=== PATIENT | female | born 1980 ===

== ENCOUNTER 2016-11-19 16:53 | Inpatient (IN) | payer OTHER ==
[2016-11-19 16:53] VITALS: BMI 24.9
--- NOTE | 2016-11-19 18:07 | C.PDOC ---
History Of Present Illness 36 year old female with a history of depression and bipolar disorder, presents to the ED requesting detox from alcohol. Patient states she drinks a gallon of vodka a day and notes her last drink was today. She reports some abdominal discomfort and feeling tremulous. patient has no other complaints at this time. Time Seen by Provider: 11/19/16 17:23 Chief Complaint (Nursing): Medical Clearance History Per: Patient History/Exam Limitations: no limitations Onset/Duration Of Symptoms: Days Current Symptoms Are (Timing): Still Present Severity: Mild Past Medical History Reviewed: Historical Data, Nursing Documentation, Vital Signs Vital Signs: Last Vital Signs Temp 97.6 F 11/19/16 17:29 Pulse 75 11/19/16 17:29 Resp 20 11/19/16 17:29 BP 117/76 11/19/16 17:04 Pulse Ox 98 11/19/16 18:08 - Medical History PMH: Anemia (iron deficient (thought perhaps malabsorptive)), Arthritis, Asthma , Bipolar Disorder, Bronchitis, Depression, Kidney Stones, Migraine (chronic, was not responsive to Fioricet), Chronic Kidney Disease, Schizophrenia, Seizures (followed by neurologist in [facility] for migraines) Surgical History: Cholecystectomy - [facility] Procedures INJECT/INFUSE NEC (03/20/13) PACKED CELL TRANSFUSION (05/30/13) PSYCHIAT DRUG THERAP NEC (07/08/12) RETROGRADE PYELOGRAM (06/27/04) TONSILLECTOMY (03/16/99) URETERAL CATHETERIZATION (06/27/04) Family History: States: Unknown Family Hx - Social History Hx Tobacco Use: Yes Hx Alcohol Use: Yes Hx Substance Use: Yes - Immunization History Hx Tetanus Toxoid Vaccination: Yes Hx Influenza Vaccination: Yes Hx Pneumococcal Vaccination: No Review Of Systems Except As Marked, All Systems Reviewed And Found Negative. Constitutional: Positive for: Other (Detox). Negative for: Fever, Chills Cardiovascular: Negative for: Chest Pain, Palpitations Respiratory: Negative for: Shortness of Breath Gastrointestinal: Positive for: Abdominal Pain Neurological: Positive for: Other (Tremulous) Physical Exam - Physical Exam Appears: Non-toxic, No Acute Distress Skin: Normal Color, Warm, Dry Head: Atraumatic, Normacephalic Eye(s): bilateral: Normal Inspection Oral Mucosa: Moist Chest: Symmetrical, No Deformity Cardiovascular: Rhythm Regular, No Murmur Respiratory: Normal Breath Sounds, No Accessory Muscle Use, No Rales, No Rhonchi , No Wheezing Gastrointestinal/Abdominal: Soft, No Tenderness, No Distention, No Guarding, No Rebound Extremity: Normal ROM, No Deformity, No Other (No tremors noted) Neurological/Psych: Oriented x3, Normal Speech, Normal Cognition ED Course And Treatment - Laboratory Results Result Diagrams: 11/19/16 17:59 11/19/16 17:59 Lab Interpretation: Abnormal (ETOH 338H) Urine POC: Negative O2 Sat by Pulse Oximetry: 98 (Room air) Pulse Ox Interpretation: Normal Progress Note: Blood work and Urinalysis ordered and reviewed. case discussed with the crisis director of career resources who agreed to evaluate the patient. 1830: librium 50 mg PO for anxiety/withdrawal Reevaluation Time: 19:09 Reassessment Condition: Improved Medical Decision Making Medical Decision Making: pre-screened for etoh detox- approved pending sobriety. Disposition - Disposition Disposition Time: 19:00 Condition: GOOD - Clinical Impression Clinical Impression: Alcohol abuse - Scribe Statement The provider has reviewed the documentation as recorded by the Scribe Susie Walker. Provider Attestation: All medical record entries made by the Scribe were at my direction and personally dictated by me. I have reviewed the chart and agree that the record accurately reflects my personal performance of the history, physical exam, medical decision making, and the department course for this patient. I have also personally directed, reviewed, and agree with the discharge instructions and disposition. Physician Patient Turnover Patient Signed Over To: Janice Barraza Handoff Comments: dispo per Crisis
[2016-11-19 18:08] LABS: RBC URINE 2 /hpf (0-3); URINE BACTERIA MANY (<OCC); URINE BILIRUBIN NEGATIVE (NEGATIVE); URINE BLOOD 1+ (NEGATIVE); URINE COLOR Amber (YELLOW); URINE GLUCOSE (UA) NORMAL (Normal); URINE KETONE 1+ mg/dL (NEGATIVE); URINE LEUKOCYTE ESTERASE TRACE Leu/uL (Negative); URINE PROTEIN 2+ mg/dL (NEGATIVE); WBC URINE 12 /hpf (0-5)
[2016-11-19 18:11] LABS: CHLORIDE 103 mmol/L (98-107)
[2016-11-19 18:12] LABS: POTASSIUM 3.3 mmol/L (3.6-5.2); SODIUM 145 mmol/L (132-148)
[2016-11-19 18:14] LABS: ALB/GLOB RATIO 1.4 (1.0-2.1); ALKALINE PHOSPHATASE 261 U/L (38-126); AST/SGOT 326 U/L (14-36); BILIRUBIN,TOTAL 0.7 mg/dL (0.2-1.3); BLOOD UREA NITROGEN 12 mg/dL (7-17); CARBON DIOXIDE 22 mmol/L (22-30); GFR AFRICAN-AMERICAN > 60; GLUCOSE,RANDOM 62 mg/dL (65-105); TOTAL PROTEIN 6.8 g/dL (6.3-8.3)
[2016-11-19 18:15] LABS: ALT/SGPT 89 U/L (9-52); CALCIUM 7.1 mg/dl (8.6-10.4)
[2016-11-19 18:16] LABS: BASO % 0.9 % (0.0-2.0); EOS % 0.1 % (0.0-4.0); LYMPH # 1.4 K/uL (1.0-4.3); MEAN CELL VOLUME 95.4 fL (81.0-99.0); MEAN CORPUSCULAR HEMOGLOBIN 31.6 pg (27.0-31.0); MEAN CORPUSCULAR HGB CONC 33.1 g/dL (33.0-37.0); MEAN PLATELET VOLUME 5.9 fL (7.2-11.7); MONO # 0.2 K/uL (0.0-0.8); MONO % 5.4 % (0.0-10.0); NRBC % 0.1 % (0.0-2.0); RED CELL DISTRIBUTION WIDTH 19.1 % (11.5-14.5); WHITE BLOOD COUNT 3.9 K/uL (4.8-10.8)
[2016-11-19 18:30] LABS: ALCOHOL SERUM 338 mg/dl (0-10)
[2016-11-19] MEDS ORDERED: Potassium Chloride 20 mEq ER Tab PO STA (19:24)
[2016-11-19] MEDS ORDERED: Potassium Chloride 20 mEq ER Tab PO ONE (19:40)
[2016-11-20 09:21] VITALS: RESP 18
[2016-11-20] MEDS: Multiple Vitamins Tab PO SCH (11:03)
[2016-11-20] MEDS ORDERED: Potassium Chloride 20 mEq ER Tab PO ONE (13:00)
[2016-11-20] MEDS: Calcium-Vit D 500 mg-200 Units Tab UD PO SCH ×2 (13:11→17:20)
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
[2016-11-20] MEDS: Bacitracin Ointment 30 GM TUBE TOP SCH (21:57)
[2016-11-21 08:26] LABS: CHLORIDE 97 mmol/L (98-107)
[2016-11-21 08:27] LABS: POTASSIUM 3.9 mmol/L (3.6-5.2); SODIUM 138 mmol/L (132-148)
[2016-11-21 08:29] LABS: AST/SGOT 210 U/L (14-36); BILIRUBIN,TOTAL 0.8 mg/dL (0.2-1.3); CARBON DIOXIDE 31 mmol/L (22-30); GFR AFRICAN-AMERICAN > 60
[2016-11-21 08:30] LABS: ALB/GLOB RATIO 1.4 (1.0-2.1); ALKALINE PHOSPHATASE 209 U/L (38-126); ALT/SGPT 64 U/L (9-52); BLOOD UREA NITROGEN 9 mg/dL (7-17); CALCIUM 8.5 mg/dl (8.6-10.4); GLUCOSE,RANDOM 75 mg/dL (65-105)
[2016-11-21] MEDS: Calcium-Vit D 500 mg-200 Units Tab UD PO SCH ×2 (09:55→17:12)
[2016-11-21] MEDS: Multiple Vitamins Tab PO SCH (09:56)
[2016-11-21] MEDS: Bacitracin Ointment 30 GM TUBE TOP SCH ×2 (10:00→17:12)
--- NOTE | 2016-11-21 15:56 | PCM.PYCHPN ---
Psychiatric Progress Note - Psychiatric Progress Note Patient seen today, length of contact: 20 min Patient Chief Complaint: "I am doing better today" Problems Identified/Issues Discussed: The pt is seen, chart reviewed, case discussed with staff. Pt states that her mood is positive today. She slept well the night before. Pt admits to diarrhea, vomiting and weakness in her legs. Her shakes have improved from yesterday. Pt denies suicidal thoughts or thoughts of hurting other people. Pt denies auditory or visual hallucinations. Her current plan is to go to [facility] after her treatment is done. After care discussed, support and psychoeducation given. DSM 5 Symptoms Update: Alcohol withdrawal Alcohol use disorder-severe Bipolar 2 d/o Cannabis use d/o - moderate Medication Change: Yes (Lorazepam taper) Medical Record Reviewed: Yes Mental Status Examination - Cognitive Function Orientation: Person, Place, Situation, Time Memory: Intact Attention: WNL Concentration: WNL Association: WN Fund of Knowledge: WN - Mood Mood: Depressed, Anxious - Affect Affect: Broad - Speech Speech: Appropriate - Formal Thought Process Formal Thought Process: No Impairment - Suicidal Ideation Suicidal Ideation: No - Homicidal Ideation Homicidal Ideation: No Goal/Treatment Plan - Goal/Treatment Plan Need for Continued Stay: Discharge may exacerbated symptoms Progress Toward Problem(s) and Goals/Treatment Plan: Alcohol: Ativan detox As needed meds Attend groups and activities RI/CBT for abstinence Support and psychoeducation Prisca for s/z d.o Cipro for UTI x7 days Seroquel 100 mg hs for bipolar Type 2 Gabapentin for anxiety, PTSD-like sxs, cannabis withdrawal Patch for nicotine Refer to rehab Consider topamax or naltrexone for cravings (when liver improves) - Smoking Cessation Smoking Cessation Initiated: Yes
[2016-11-22] MEDS: Multiple Vitamins Tab PO SCH (09:52)
[2016-11-22] MEDS: Bacitracin Ointment 30 GM TUBE TOP SCH ×2 (09:52→20:06)
[2016-11-22] MEDS: Calcium-Vit D 500 mg-200 Units Tab UD PO SCH ×2 (09:52→17:10)
--- NOTE | 2016-11-22 13:44 | PCM.PYCHPN ---
Psychiatric Progress Note - Psychiatric Progress Note Patient seen today, length of contact: 17 min Patient Chief Complaint: "I am fine" Problems Identified/Issues Discussed: The pt is seen, chart reviewed, case discussed with staff. After care discussed, support and psychoeducation given. CT used. The pt confirms that she had NOT had any seizures "in years." Also, she is NOT hearing voices, seeing things or paranoid. She is somewhat anxious and withdrawn but overall she has much improved and functioning properly. No acute sxs or risks. Medication Change: Yes (Lorazepam taper) Medical Record Reviewed: Yes Mental Status Examination - Cognitive Function Orientation: Person, Place, Situation, Time Memory: Intact Attention: WNL Concentration: WNL Association: WNL Fund of Knowledge: WNL - Mood Mood: Depressed, Anxious - Affect Affect: Broad - Speech Speech: Appropriate - Formal Thought Process Formal Thought Process: No Impairment - Suicidal Ideation Suicidal Ideation: No - Homicidal Ideation Homicidal Ideation: No Goal/Treatment Plan - Goal/Treatment Plan Need for Continued Stay: Severe functional impairment Progress Toward Problem(s) and Goals/Treatment Plan: Alcohol: Ativan detox As needed meds Attend groups and activities CT/CBT for abstinence Support and psychoeducation Prisca for s/z d.o Cipro for UTI x7 days Seroquel 100 mg hs for bipolar Type 2 Gabapentin for anxiety, PTSD-like sxs, cannabis withdrawal Patch for nicotine Refer to rehab Consider topamax or naltrexone for cravings (when liver improves) Estimated Date of D/C: 11/23/16
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
[2016-11-23 09:10] VITALS: BP 130/73; PULSE 78; TEMP 97.3; O2SAT 97
[2016-11-23] MEDS: Multiple Vitamins Tab PO SCH (09:33)
[2016-11-23] MEDS: Bacitracin Ointment 30 GM TUBE TOP SCH (09:34)
[2016-11-23] MEDS: Calcium-Vit D 500 mg-200 Units Tab UD PO SCH (09:39)
[2016-11-23] MEDS ORDERED: Pneumococcal 23-Valent Vaccine IM ONE (10:00)
== END 2016-11-23 11:15 | disposition home or self-care (01) | DRG 750 ==
LOC: C.ER 16:53 → C.9OBSV 19:25 → OBSVTOIN 11-20 01:16 → C.7D 11-20 01:31
PROVIDERS: ADMIT Psychiatry & Neurology Psychiatry; ATTEND Psychiatry & Neurology Psychiatry
PROC: HZ2ZZZZ Detoxification Services for Substance Abuse Treatment (ICD-10-PCS; principal; 2016-11-20)
PROC: HZ46ZZZ Group Counseling for Substance Abuse Treatment, Psychoeducation (ICD-10-PCS; 2016-11-20)
PROC: HZ59ZZZ Individual Psychotherapy for Substance Abuse Treatment, Supportive (ICD-10-PCS; 2016-11-20)
PROC: GZ3ZZZZ Medication Management (ICD-10-PCS; 2016-11-20)
DX: F10.230 Alcohol dependence with withdrawal, uncomplicated (principal); F31.9 Bipolar disorder, unspecified; F12.10 Cannabis abuse, uncomplicated; N39.0 Urinary tract infection, site not specified; F17.210 Nicotine dependence, cigarettes, uncomplicated; G40.909 Epilepsy, unspecified, not intractable, without status epilepticus; J45.909 Unspecified asthma, uncomplicated; Z90.49 Acquired absence of other specified parts of digestive tract

== ENCOUNTER 2017-06-27 17:15 | Inpatient (IN) | payer MEDICAID ==
[2017-06-27 17:15] VITALS: BMI 26.4
--- NOTE | 2017-06-27 18:14 | C.PDOC ---
History Of Present Illness 37 y/o female, with PMHx of seizures, complaint with meds, presents to ED requesting detox from alcohol. Notes drinking a gallon of vodka a day. Last drink was yesterday. Pt complaints of nausea, weakness, and shaking. No other complaints. Time Seen by Provider: 06/27/17 17:52 Chief Complaint (Nursing): Substance Abuse History Per: Patient History/Exam Limitations: no limitations Onset/Duration Of Symptoms: Gradual Current Symptoms Are (Timing): Still Present Suicide/Self Injury Attempted (Context): None Modifying Factor(s): Alcohol Associated Symptoms: denies: Suicidal Thoughts, Suicidal Plan Involuntary Hold By: None Recent travel outside of the [place]: No Additional History Per: Patient Past Medical History Reviewed: Historical Data, Nursing Documentation, Vital Signs Vital Signs: Last Vital Signs Temp 97.8 F 06/27/17 17:20 Pulse 81 06/27/17 17:20 Resp 20 06/27/17 17:20 BP 113/75 06/27/17 17:20 Pulse Ox 98 06/27/17 18:22 - Medical History PMH: Anemia (iron deficient), Anxiety, Arthritis, Asthma, Bipolar Disorder, Bronchitis, Depression, Kidney Stones, Migraine (chronic, was not responsive to Fioricet), Schizophrenia, Seizures Denies: Diabetes, Hepatitis, HIV, HTN, Chronic Kidney Disease, Sexually Transmitted Disease Surgical History: Cholecystectomy Denies: Pacemaker - [facility] Procedures DETOXIFICATION SERVICES FOR SUBSTANCE ABUSE TREATMENT (11/20/16) GROUP RACE AND SPORTS BOOK WRITER FOR SUBSTANCE ABUSE TREATMENT, PSYCHOEDUCATION (11/20/16) INDIV PSYCHOTHERAPY FOR SUBSTANCE ABUSE TREATMENT, SUPPORT (11/20/16) INJECT/INFUSE NEC (03/20/13) MEDICATION MANAGEMENT (11/20/16) PACKED CELL TRANSFUSION (05/30/13) PSYCHIAT DRUG THERAP NEC (07/08/12) RETROGRADE PYELOGRAM (06/27/04) TONSILLECTOMY (03/16/99) URETERAL CATHETERIZATION (06/27/04) Family History: States: Unknown Family Hx - Social History Hx Tobacco Use: Yes Hx Alcohol Use: Yes (HEAVY ALCOHOL USE, VODKA) Hx Substance Use: Yes (MARIJUANA) - Immunization History Hx Tetanus Toxoid Vaccination: Yes Hx Influenza Vaccination: Yes Hx Pneumococcal Vaccination: No Review Of Systems Except As Marked, All Systems Reviewed And Found Negative. Constitutional: Positive for: Weakness. Negative for: Fever, Chills Cardiovascular: Negative for: Chest Pain, Palpitations Respiratory: Negative for: Cough, Shortness of Breath Gastrointestinal: Positive for: Nausea. Negative for: Vomiting, Abdominal Pain Neurological: Negative for: Headache, Dizziness Psych: Negative for: Suicidal ideation Physical Exam - Physical Exam Appears: Non-toxic, No Acute Distress Skin: Normal Color, Warm, Dry Head: Atraumatic, Normacephalic Eye(s): bilateral: Normal Inspection Oral Mucosa: Moist Neck: Supple Cardiovascular: Rhythm Regular, No Murmur Respiratory: Normal Breath Sounds, No Rales, No Rhonchi, No Wheezing Gastrointestinal/Abdominal: Soft, No Tenderness Extremity: Normal ROM, No Pedal Edema Neurological/Psych: Oriented x3, Normal Speech ED Course And Treatment - Laboratory Results Result Diagrams: 06/27/17 18:16 06/27/17 18:16 O2 Sat by Pulse Oximetry: 98 Medical Decision Making Medical Decision Making: Blood work, UA ordered and reviewed. Pending crisis evaluation. Disposition Counseled Patient/Family Regarding: Studies Performed, Diagnosis - Disposition Disposition: HOSPITALIZED Disposition Time: 18:34 Condition: GUARDED - POA Present On Arrival: None - Clinical Impression Clinical Impression: Alcohol use disorder - Scribe Statement The provider has reviewed the documentation as recorded by the Scribe Ericka Hector All medical record entries made by the Scribe were at my direction and personally dictated by me. I have reviewed the chart and agree that the record accurately reflects my personal performance of the history, physical exam, medical decision making, and the department course for this patient. I have also personally directed, reviewed, and agree with the discharge instructions and disposition. Physician Patient Turnover Patient Signed Over To: Christo Peterson Handoff Comments: Pending labs and crisis evaluation Decision To Admit - . Patient Diagnosis: Alcohol use disorder
[2017-06-27 18:23] LABS: BASO % 0.9 % (0.0-2.0); EOS % 0.3 % (0.0-4.0); HEMATOCRIT 33.2 % (34.0-47.0); LYMPH # 1.4 K/uL (1.0-4.3); LYMPH % 30.2 % (20.0-40.0); MEAN CELL VOLUME 84.3 fL (81.0-99.0); MEAN CORPUSCULAR HEMOGLOBIN 27.6 pg (27.0-31.0); MEAN CORPUSCULAR HGB CONC 32.8 g/dL (33.0-37.0); MEAN PLATELET VOLUME 7.1 fL (7.2-11.7); MONO # 0.3 K/uL (0.0-0.8); MONO % 7.1 % (0.0-10.0); NRBC % 0.1 % (0.0-2.0); RED CELL DISTRIBUTION WIDTH 19.5 % (11.5-14.5); WHITE BLOOD COUNT 4.6 K/uL (4.8-10.8)
[2017-06-27 18:31] LABS: ALB/GLOB RATIO 0.9 (1.0-2.1); ALCOHOL SERUM 89 mg/dl (0-10); ALKALINE PHOSPHATASE 99 U/L (38-126); ALT/SGPT 43 U/L (9-52); AST/SGOT 43 U/L (14-36); BILIRUBIN,TOTAL 0.3 mg/dL (0.2-1.3); BLOOD UREA NITROGEN 11 mg/dL (7-17); CALCIUM 8.2 mg/dl (8.6-10.4); CARBON DIOXIDE 23 mmol/L (22-30); CHLORIDE 106 mmol/L (98-107); GFR AFRICAN-AMERICAN > 60; GLUCOSE,RANDOM 73 mg/dL (65-105); POTASSIUM 3.4 mmol/L (3.6-5.2); SODIUM 140 mmol/L (132-148); TOTAL PROTEIN 7.9 g/dL (6.3-8.3)
[2017-06-27 18:49] LABS: RBC URINE 1 /hpf (0-3); URINE BACTERIA OCC (<OCC); URINE BILIRUBIN NEGATIVE (NEGATIVE); URINE BLOOD NEGATIVE (NEGATIVE); URINE COLOR Yellow (YELLOW); URINE GLUCOSE (UA) NORMAL (Normal); URINE KETONE NEGATIVE (NEGATIVE); URINE LEUKOCYTE ESTERASE TRACE Leu/uL (Negative); URINE PROTEIN NEGATIVE (NEGATIVE); URINE UROBILINOGEN NORMAL mg/dL (0.2-1.0); WBC URINE 12 /hpf (0-5)
[2017-06-27] MEDS ORDERED: Potassium Chloride 10 mEq ER Tab PO STA (19:13)
[2017-06-27] MEDS ORDERED: Potassium Chloride 20 mEq ER Tab PO ONE (19:32)
--- NOTE | 2017-06-27 20:32 | PCM.BM ---
<Simin Lee - Last Filed: 06/27/17 20:31> Treatment Plan Problems - Problems identified on initial assessmt Potential for alcohol withdrawal Date Initiated: 06/27/17 Time Initiated: 20:31 Assessment reference: NA Status: Active Priority: 1 Treatment assets and liabiliti Patient Assests: cooperative, ADL independent, negotiates basic needs, cognitively intact Patient Liabilities: substance abuse - Milieu Protocol Maintain good personal hygiene: daily Encourage regular showers, daily Remind patient to perform daily oral care, daily Assist patient to perform ADL's Maintain personal safety: every shift Educate patient to report safety concerns to staff, every shift Monitor environment for contraband/sharps Medication safety: Monitor for expected outcome, potential side effects: every shift, Assess barriers to learning: every shift, Assess readiness for medication education: every shift <Juan Pinto - Last Filed: 06/28/17 00:30> - Diagnosis (1) Alcohol use disorder Status: Acute Interventions: 06/28/17 00:30 * Assess 7x/week regarding severity of withdrawal * Educate regarding risks, benefits, side effects and alternatives of medications * Use Motivational Interviewing for abstinence * Use CBT for relapse prevention * Medication management for withdrawal symptoms * Encourage medication assisted treatment * <Mery Lindsay - Last Filed: 07/01/17 08:41> Family Contact Family involvement: Noel/SO not involved Family contact: Patient agrees to contact - Goals for Treatment Patient goals for treatment: Complete detox and apply for joint terminal attack controller rehab. Discharge/Continuing Care - Education Needs Education Needs: Patient Medication, Patient Diagnosis/Disease Process, Patient Coping Skills, Patient Anger Management skills, Patient Placement options, Patient Community resources - Discharge Discharge Criteria: No longer exhibiting s/s of withdrawal, Reduction of target symptoms Discharge to:: Substance Abuse Rehab - Treatment Team Participation Patient/Family/SO Statement: 07/01/17 08:41 "I wanna go to [facility] if I [facility]". Discussed with Family/SO: No Was Patient/Family/SO present at Treatment Team Meeting: Yes
[2017-06-27] MEDS ORDERED: Aluminum Hydroxide/Magnesium Hydroxide Susp (30 mL) PO PRN (21:18)
[2017-06-28] MEDS: Multiple Vitamins Tab PO SCH (09:55)
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
[2017-06-28] MEDS: Pantoprazole 40 mg EC Tab PO SCH (13:53)
[2017-06-29 08:29] LABS: ALB/GLOB RATIO 1.2 (1.0-2.1); ALKALINE PHOSPHATASE 83 U/L (38-126); ALT/SGPT 34 U/L (9-52); AST/SGOT 41 U/L (14-36); BILIRUBIN,TOTAL 0.6 mg/dL (0.2-1.3); BLOOD UREA NITROGEN 9 mg/dL (7-17); CARBON DIOXIDE 24 mmol/L (22-30); CHLORIDE 102 mmol/L (98-107); CHOLESTEROL 128 mg/dL (0-199); GFR AFRICAN-AMERICAN > 60; GLUCOSE,RANDOM 99 mg/dL (65-105); MAGNESIUM 1.6 mg/dL (1.6-2.3); POTASSIUM 3.3 mmol/L (3.6-5.2); SODIUM 134 mmol/L (132-148); TOTAL PROTEIN 6.1 g/dL (6.3-8.3)
[2017-06-29] MEDS: Pantoprazole 40 mg EC Tab PO SCH (10:37)
[2017-06-29] MEDS: Multiple Vitamins Tab PO SCH (10:37)
--- NOTE | 2017-06-29 11:50 | RAD ---
Right knee three views History: Fall. Comparison: None available. Findings: No evidence for acute displaced fracture or dislocation. No significant suprapatellar joint effusion. Few horizontally oriented linear areas of increased sclerosis within the posterior proximal tibia may represent some vascular grooves. Impression: Negative acute. If pain persists, consider MRI.
--- NOTE | 2017-06-29 17:36 | PCM.PYCHPN ---
Psychiatric Progress Note - Psychiatric Progress Note Patient seen today, length of contact: 17 minutes Patient Chief Complaint: I have pain in my Right knee Problems Identified/Issues Discussed: The pt is seen, chart reviewed, case discussed with staff. The pt stated that she fell down yesterday last night, but she did not reported the incident to on- call staff last night. Pt stated that she has had Right knee pain and difficulty in walking. She denied any dizziness, headache or head injury. The pt is compliant with medications and reports no side-effects. Symptoms are improving but needs more time to stabilize. After care discussed, support and psychoeducation given. DSM 5 Symptoms Update: Alcohol withdrawal Alcohol use d/o - severe Bipolar II d/o -depressed r/o Borderline personality d/o Medication Change: Yes (librium detox) Medical Record Reviewed: Yes Mental Status Examination - Cognitive Function Orientation: Person, Place, Situation, Time Memory: Intact Attention: WNL Concentration: WNL Association: WNL Fund of Knowledge: WN Decription of patient's judgement and insights: fair/fair Addtional comments: Calm and cooperative, on Right Knee examination there were old scab and one small tiny rectangular shape bruise size is less than 0.5 cm x 1 cm in lenght, there was no head or fore injury observed, on palpation it was no tenderness, no swelling or redness. - Mood Mood: Anxious, Neutral - Affect Affect: Constricted - Speech Speech: Appropriate - Formal Thought Process Formal Thought Process: No Impairment Psychotic Thoughts and Behaviors: denied - Suicidal Ideation Suicidal Ideation: No - Homicidal Ideation Homicidal Ideation: No Goal/Treatment Plan - Goal/Treatment Plan Progress Toward Problem(s) and Goals/Treatment Plan: Librium detox As needed medications Gabapentin for augmentation Will f/u with knee xray results. Attend groups and activities Supportive therapy and psychoeducation [place] for abstinence CBT for relapse prevention Encourage MAT Refer to rehab or IOP Attend self-help groups as well - Smoking Cessation Smoking Cessation Initiated: Yes
[2017-06-30] MEDS: Multiple Vitamins Tab PO SCH (10:24)
[2017-06-30] MEDS: Pantoprazole 40 mg EC Tab PO SCH (10:24)
--- NOTE | 2017-06-30 13:35 | RAD ---
Chest x-ray two views History: Rehab. Comparison: None available. Findings: No focal infiltrate or effusion. Prominent bibasilar breast and nipple shadows. Heart size within normal limits. Impression: No focal infiltrate or effusion.
--- NOTE | 2017-06-30 16:34 | PCM.PYCHPN ---
Psychiatric Progress Note - Psychiatric Progress Note Patient seen today, length of contact: 17 minutes Patient Chief Complaint: I'm feeling better Problems Identified/Issues Discussed: The pt is seen, chart reviewed, case discussed with staff. The pt is compliant with medications and reports no side-effects. Symptoms are improving but needs more time to stabilize. pt wants to d/c to inpt rehab program After care discussed, support and psychoeducation given. Diagnostic Results: etoh use d/o, severe dependence, withdrawal, Bipolar 2 d/o, sedative, hypnotic anxiolytic use d/o Medication Change: Yes (librium detox) Medical Record Reviewed: Yes Mental Status Examination - Cognitive Function Orientation: Person, Place, Situation, Time Memory: Intact Attention: WNL Concentration: WNL Association: WNL Fund of Knowledge: WN Decription of patient's judgement and insights: fair/fair - Mood Mood: Anxious, Neutral - Affect Affect: Constricted - Speech Speech: Appropriate - Formal Thought Process Formal Thought Process: No Impairment Psychotic Thoughts and Behaviors: denied - Suicidal Ideation Suicidal Ideation: No - Homicidal Ideation Homicidal Ideation: No Goal/Treatment Plan - Goal/Treatment Plan Progress Toward Problem(s) and Goals/Treatment Plan: Librium detox As needed medications Gabapentin for augmentation Will f/u with knee xray results. Attend groups and activities Supportive therapy and psychoeducation [place] for abstinence CBT for relapse prevention Encourage MAT Refer to rehab or IOP Attend self-help groups as well
[2017-06-30 20:38] VITALS: RESP 18
[2017-07-01] MEDS: Multiple Vitamins Tab PO SCH (09:36)
[2017-07-01] MEDS: Pantoprazole 40 mg EC Tab PO SCH (09:36)
--- NOTE | 2017-07-01 21:54 | PCM.PYCHPN ---
Psychiatric Progress Note - Psychiatric Progress Note Patient seen today, length of contact: 17 minutes Patient Chief Complaint: "Better" Problems Identified/Issues Discussed: The pt is seen, chart reviewed, case discussed with staff. The pt is compliant with medications and reports no side-effects. Symptoms are improving but needs more time to stabilize. After care discussed, support and psychoeducation given. Plan is to go to [facility] yesterday Medication Change: Yes (librium detox) Medical Record Reviewed: Yes Mental Status Examination - Cognitive Function Orientation: Person, Place, Situation, Time Memory: Intact Attention: WNL Concentration: WNL Association: WNL Fund of Knowledge: WNL - Mood Mood: Anxious, Neutral - Affect Affect: Constricted - Speech Speech: Appropriate - Formal Thought Process Formal Thought Process: No Impairment - Suicidal Ideation Suicidal Ideation: No - Homicidal Ideation Homicidal Ideation: No Goal/Treatment Plan - Goal/Treatment Plan Need for Continued Stay: Discharge may exacerbated symptoms, Severe functional impairment Progress Toward Problem(s) and Goals/Treatment Plan: Librium detox As needed medications Gabapentin for augmentation Attend groups and activities Supportive therapy and psychoeducation [place] for abstinence CBT for relapse prevention Encourage MAT Refer to rehab or IOP Attend self-help groups as well Abilify and lexapro for Bipolar-depressed Consider stopping lexapro soon Sx management, support, CBT
[2017-07-02] MEDS: Pantoprazole 40 mg EC Tab PO SCH (09:45)
[2017-07-02] MEDS: Multiple Vitamins Tab PO SCH (09:45)
[2017-07-02 10:24] VITALS: BP 103/60; PULSE 66; TEMP 97.6; O2SAT 100
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
== END 2017-07-02 12:10 | disposition home or self-care (01) | DRG 750 ==
LOC: C.ER 17:15 → C.7D 20:13
PROVIDERS: ADMIT Psychiatry & Neurology Psychiatry; ATTEND Psychiatry & Neurology Psychiatry
DX: F10.239 Alcohol dependence with withdrawal, unspecified (principal); F20.9 Schizophrenia, unspecified; F31.81 Bipolar II disorder; D50.9 Iron deficiency anemia, unspecified; F17.210 Nicotine dependence, cigarettes, uncomplicated; F12.90 Cannabis use, unspecified, uncomplicated; W19.XXXA Unspecified fall, initial encounter; F43.10 Post-traumatic stress disorder, unspecified; Y90.4 Blood alcohol level of 80-99 mg/100 ml; J45.909 Unspecified asthma, uncomplicated; G40.909 Epilepsy, unspecified, not intractable, without status epilepticus; M25.561 Pain in right knee; Y92.239 Unspecified place in hospital as the place of occurrence of the external cause; R26.2 Difficulty in walking, not elsewhere classified; Z91.410 Personal history of adult physical and sexual abuse; Z91.5 Personal history of self-harm